=== PATIENT | male | born 1940 | race Caucasian/White ===

== ENCOUNTER 2019-08-17 06:27 | Day surgery (SDC) | payer MEDICARE, OTHER ==
[~2019-08-17] VITALS: Ht 188 cm; Wt 95.5 kg
[~2019-08-17 06:27] MED LIST: ASPIRIN 81M81 MG/TA2 PO; CEPHALEXIN500 M1 PO; CRESTOR40 MG PO; FISH OIL 1000MG1 CAP PO; GLUCOPHAGE500 MG/TAB PO; JANUVIA 100MG100 MG PO; LEVEMIR100 U/ML SQ; LIPITOR 80MG80 MG PO; NEURONTIN300 MG/CAP PO; PLAVIX 75MG TAB75 MG PO; PRILOSEC 20MG20 MG PO; SYNTHROID 0.0.025 MG PO; ZOCOR 40MG40 MG PO; ZOLOFT 25MG25 MG PO; ZOLOFT 50MG50 MG PO
[2019-08-17 07:16] VITALS: BP 128/69; PULSE 95; TEMP 97.4
[2019-08-17] MEDS ORDERED: GLUCOPHAGE XR500 M1 PO (07:27)
[2019-08-17] MEDS ORDERED: B-121000 MCG PO (07:29)
[2019-08-17] MEDS ORDERED: COMPAZINE 110 MG/TAB PO (07:31)
[2019-08-17] MEDS ORDERED: SYNTHROID0.05 MG/TA PO (07:31)
[2019-08-17] MEDS ORDERED: ZYRTEC 10MG10 MG PO (07:31)
[2019-08-17] MEDS ORDERED: FOLIC ACID 11 MG/TA1 PO (07:33)
--- NOTE | 2019-08-17 07:36 | NUR ---
TO RM AT 0641- CALL LIGHT IN REACH
[2019-08-17 09:10] VITALS: BP 127/68; PULSE 69; TEMP 97.5
--- NOTE | 2019-08-17 09:10 | NUR ---
TO RM 6 PER CART FROM OR. ALERT ORIENTED X3, TALKING WITH STAFF. DENIE PAIN OR DISCOMFORT.
[2019-08-17 09:15] VITALS: BP 132/67; PULSE 63
--- NOTE | 2019-08-17 09:15 | NUR ---
LOPEZ SET DRESSING OVER INCISION SITES CLEAN DRY INTACT. RECEIVED OJ AND MUFFIN. CALLED FOR RIDE HOME
[2019-08-17 09:17] LABS: HEMATOCRIT 34.2 % (42.0-52.0); MEAN CELL VOLUME 89 fl (80.0-100.0); MEAN CORPUSCULAR HEMOGLOBIN 29 pg (27.0-31.0); MEAN CORPUSCULAR HGB CONC 32 g/dl (33.0-37.0); MEAN PLATELET VOLUME 10.1 fl (7.4-10.4); PLATELET COUNT 213 K/mm3 (130-400); RED BLOOD COUNT 3.86 M/mm3 (4.20-5.60); REDCELL DISTRIBUTION WIDTH-CV 13.9 % (11.5-14.5)
[2019-08-17 09:20] LABS: ALBUMIN 3.2 gm/dL (3.5-5.0); CALCIUM 8.4 mg/dL (8.4-10.2); CREATININE, serum 1.06 (0.66-1.25); POTASSIUM 3.8 mmol/L (3.4-5.0); TOTAL PROTEIN 6.3 gm/dL (6.4-8.2)
[2019-08-17 09:30] VITALS: BP 132/65; PULSE 70
--- NOTE | 2019-08-17 09:30 | NUR ---
ATE 100% AND TOLERATED WELL.
--- NOTE | 2019-08-17 10:00 | NUR ---
RECEIVED DISCHARGE INSTRUCTIONS AND VERBALIZED UNDERSTANDING. DISCONTINUED IV AND INT- CATHETER INTACT. PATIENT GETTING DRESSED.
--- NOTE | 2019-08-17 10:15 | NUR ---
DISCHARGED PER WC BY NURSING STAFF TO PRIVATE CAR IN CARE OF ROSAS
[2019-08-17 10:19] LABS: BAND 4 % (0-10); EOSINOPHIL 1 % (0-4); LYMPHOCYTE 20 % (20.0-51.0); NEUTROPHILS 69 % (42.0-75.2)
[2019-08-17 10:20] LABS: PLATELET ESTIMATE NORMAL (NORMAL)
[2019-08-17 10:21] LABS: HYPOCHROMIA 1+; OVALOCYTES 1+
--- NOTE | 2019-08-17 10:58 | NUR ---
LABS FAXED TO DR LAUGHLIN'S OFFICE.
== END 2019-08-17 10:27 | disposition home or self-care (01) ==
LOC: SDCO 06:27
PROVIDERS: Surgery
DX: C34.31 Malignant neoplasm of lower lobe, right bronchus or lung (principal); C77.1 Secondary and unspecified malignant neoplasm of intrathoracic lymph nodes; C78.2 Secondary malignant neoplasm of pleura; E11.9 Type 2 diabetes mellitus without complications; Z79.4 Long term (current) use of insulin; Z79.82 Long term (current) use of aspirin; Z79.899 Other long term (current) drug therapy; Z95.0 Presence of cardiac pacemaker; Z88.9 Allergy status to unspecified drugs, medicaments and biological substances
CPT/HCPCS: C1788; J0690; J1644; J2704; J3010; J7030

== ENCOUNTER 2020-03-28 11:16 | Inpatient (IN) | payer MEDICARE, OTHER ==
[~2020-03-28] VITALS: Ht 188 cm; Wt 90.2 kg
[~2020-03-28 11:16] MED LIST changes: +B-121000 MCG PO; +COMPAZINE 110 MG/TAB PO; +FOLIC ACID 11 MG/TA1 PO; +GLUCOPHAGE XR500 M1 PO; +LANTUS100 U/ML SQ; -LEVEMIR100 U/ML SQ; +SYNTHROID0.075 MG/T PO; -ZOLOFT 50MG50 MG PO; +ZYRTEC 10MG10 MG PO
[2020-03-28 12:30] LABS: ALBUMIN 2.8 gm/dL (3.5-5.0); BILIRUBIN,TOTAL 1.4 mg/dL (0.0-1.0); CALCIUM 8.3 mg/dL (8.4-10.2); CREATININE, serum 1.1 (0.66-1.25); MEAN CELL VOLUME 95 fl (80.0-100.0); MEAN CORPUSCULAR HGB CONC 31 g/dl (33.0-37.0); MEAN PLATELET VOLUME 10.1 fl (7.4-10.4); PLATELET COUNT 62 K/mm3 (130-400); POTASSIUM 4.8 mmol/L (3.4-5.0); RED BLOOD COUNT 2.81 M/mm3 (4.20-5.60); REDCELL DISTRIBUTION WIDTH-CV 16.5 % (11.5-14.5)
[2020-03-28 12:35] LABS: HEMATOCRIT 26.7 % (42.0-52.0); HEMOGLOBIN 8.2 g/dl (13.5-18.0); MEAN CORPUSCULAR HEMOGLOBIN 29 pg (27.0-31.0)
[2020-03-28 12:49] LABS: C-REACTIVE PROTEIN 26.7 mg/dL (0.0-0.9)
[2020-03-28 13:27] LABS: BAND 7 % (0-10); LYMPHOCYTE 26 % (20.0-51.0); NEUTROPHILS 67 % (42.0-75.2); PLATELET ESTIMATE DECREASED (NORMAL); SCHISTOCYTES 1+; TEAR DROP CELLS 1+
[2020-03-28 13:30] LABS: INR 1.1 (0.8-3.0); PROTHROMBIN TIME 12.5 SECONDS (9.7-12.8)
--- NOTE | 2020-03-28 15:27 | NUR ---
Pt has right sided pleurx drain with drainage seeping from around the insertion site. Cap was removed and dried drainage noted on the one way valve access site. Using sterile gloves the top was cleansed with alcohol and the drainage bottle was attached and suction activated. Prompt return of about 200ml of escalante colored fluid with some air noted also. Pt tolerated this well. Drainage bottle was disconnected, one way valve access was again cleansed with alcohol and a clean cap was applied. Foam dressing was applied to skin and then guaze was used to cover the drainage tube. Pt states he has not been using tegaderm as it is too hard on his skin and instead has been using tape and then karolina wrap to hold in place. This is not the recommended dressing but has been his practice. Specimen and report given to his nurse Alicia.
[2020-03-28 16:01] LABS: PLEURAL FLUID APPEARANCE TURBID; PLEURAL FLUID COLOR OTHER
[2020-03-28 16:02] LABS: PLEURAL FLUID RBC 0 /mm3 (0-0); PLEURAL FLUID WBC 276 /mm3
[2020-03-28] MEDS ORDERED: ZITHROMAX 250M250 MG PO (16:24)
[2020-03-28] MEDS ORDERED: PREDNISONE20 MG PO (16:24)
[2020-03-28] MEDS ORDERED: PROMETHAZINE12.5 M5 PO (16:24)
[2020-03-28 18:08] VITALS: BP 126/55; PULSE 73; TEMP 98.1
[2020-03-28 19:05] VITALS: BP 135/94; PULSE 94; TEMP 98
[2020-03-28] MEDS ORDERED: HUMALOG100 U/ML SQ (19:22)
[2020-03-28 22:56] VITALS: BP 120/48; PULSE 87; TEMP 98.7
[2020-03-29] VITALS (10 sets, daily range): BP systolic 118–150; BP diastolic 52–86; PULSE 69–96; TEMP 97.9–99.3
--- NOTE | 2020-03-29 01:24 | NUR ---
Patient admitted to medical floor Room 310 from ER on 03/28/20. Patient pleasant, A/O x4. Patient denies any pain or discomfort. Denies SOB or dyspnea. Patient reports mild nausea but refused for any nausea medicine at this time. Pleurx drain site to right lateral lower chest covered with dry dressing. Dressing clean/dry/intact. Redness to right lateral lower chest area noted. Right upper chest port cath and Left AC IV site has no s/s of complications. Scheduled meds given per order. Call light within reach. Patient denies any needs at this time.
[2020-03-29 06:07] LABS: MEAN CELL VOLUME 96 fl (80.0-100.0); MEAN CORPUSCULAR HGB CONC 32 g/dl (33.0-37.0); MEAN PLATELET VOLUME 10.5 fl (7.4-10.4); RED BLOOD COUNT 2.29 M/mm3 (4.20-5.60); REDCELL DISTRIBUTION WIDTH-CV 16.3 % (11.5-14.5)
[2020-03-29 06:10] LABS: CALCIUM 7.7 mg/dL (8.4-10.2); CREATININE, serum 0.92 (0.66-1.25); HEMATOCRIT 21.9 % (42.0-52.0); HEMOGLOBIN 6.9 g/dl (13.5-18.0); MEAN CORPUSCULAR HEMOGLOBIN 30 pg (27.0-31.0)
[2020-03-29 06:17] LABS: PLATELET COUNT 32 K/mm3 (130-400)
--- NOTE | 2020-03-29 06:18 | NUR ---
Patient slept well throughout the shift. Woke up a few times to use bathroom. Ambulates with steady gait. 1 person stand-by assit needed. Denies any pain or discomfort. No acute distress noted. Call light within reach.
--- NOTE | 2020-03-29 06:38 | NUR ---
Called Dr. Macias at 06:35 am to leave voice message regarding critical lab value of WBC 1.4 and platelet count of 32.
--- NOTE | 2020-03-29 07:32 | NUR ---
Bedside shift report received. pt AOX4. stated he recently ambulated self to bathroom. denies ambulation issues. would like some phenegran tablets for nausea. denies pain. IVF infusing as ordered. dressing to rt flank pleurx drain site C/D/I with KATT around abd. redness noted to back area. no s/s bleeding noted or reported. call light within reach.
[2020-03-29 08:38] LABS: ANISOCYTOSIS 2+; BAND 4 % (0-10); LYMPHOCYTE 24 % (20.0-51.0); NEUTROPHILS 64 % (42.0-75.2); PLATELET ESTIMATE DECREASED (NORMAL)
[2020-03-29 08:39] LABS: BURR CELLS 2+; OVALOCYTES 1+
--- NOTE | 2020-03-29 10:09 | NUR ---
Morning meds given. PT AOX4. dressing to rt flank JAKE insertion site changed and wound culture collected. yellow drainage noted with immediate surrounding area red, irritated and outter area warm towards abd fold. type and cross collected via Port to rt chest. rt lung hernandez very diminished. pt denies any SOB at rest. mild with activity. abd distended round. steady independent ambulation. made aware of UA needed and urinal provided. call light within reach
--- NOTE | 2020-03-29 11:32 | NUR ---
pt and educated about Granix and pt given box and pamphlet. awaiting blood to be ready.
[2020-03-29 12:42] LABS: PH 6 (5-8); SQUAMOUS EPITHELIAL None Seen /hpf; URINE APPEARANCE Clear; URINE BACTERIA Rare /hpf; URINE BILIRUBIN Negative (NEGATIVE); URINE BLOOD 2+ (NEGATIVE); URINE COLOR Yellow; URINE GLUCOSE 1+ (NEGATIVE); URINE KETONE Negative (NEGATIVE); URINE LEUKOCYTE ESTERASE Negative (NEGATIVE); URINE NITRATE Negative (NEGATIVE); URINE PROTEIN(semi-quant) 1+ (NEGATIVE); URINE RBC 20-50 /hpf; URINE UROBILINOGEN >=4.0 mg/dL (NEGATIVE)
[2020-03-29 13:11] LABS: COLLECTION METHOD CLEAN CATCH
--- NOTE | 2020-03-29 13:17 | NUR ---
SW met with patient at his bedside to complete intake assessment. Patient indicated that he currently resides in [place] with his [facility] [phone] as his EMR and care support. Patient reports that he was "fairly Independent with ADL's and that he does have a DPOa. Patient indicated having a walker and a cane, and that his PCP is Dr. Glez, he does not have any upcoming appointments. Patient reports that he gets his medications from [facility] with no concerns. Patient reports that he receives HH services from [facility], and wishes to continue receiving care if needed. SW will coordinate with [facility] as needed for continued care.
--- NOTE | 2020-03-29 19:06 | NUR ---
PT with mild to severe nausea this shift and refused lunch despite prophylactic admin of zofran and promethazine prior to. was able to drink glucerna and fruit cups x2 for dinner. no emesis. pt wants to stick to taking phenegran as "he has tried them all and the others dont work". ice chips also provided. denies pain. no reactions to blood transfusion noted. lung sounds unchanged. report given to oncoming nurses.
--- NOTE | 2020-03-29 22:16 | NUR ---
Patient laying in bed upon enter the room. Patient A/O x4. Patient appears more tired today. Noticed dinner tray is still on the table and patient only ate 10% of meal. Patient states no appetite at all. Patient c/o mild nausea and states nausea is a little better than earlier. Denies need for nausea medicine at this time. Patient denies chest pain or SOB. Breathing even and unlabored. Right upper chest port cath site and Left AC IV site has no s/s of complications. Right lateral chest wall pleurx drain site covered with dry dressing. Dressing clean/dry/intact. Right lateral chest area skin is still reddened. Scheduled meds given per order. Patient took medicine without difficulty. Call ligth within reach. Patient denies any needs at this time.
[2020-03-29 22:48] LABS: HEMATOCRIT 25.6 % (42.0-52.0); HEMOGLOBIN 8.2 g/dl (13.5-18.0)
[2020-03-30 00:15] VITALS: BP 124/55; PULSE 78; TEMP 98.1
[2020-03-30 04:38] VITALS: BP 120/56; PULSE 77; TEMP 97.9
--- NOTE | 2020-03-30 06:07 | NUR ---
Patient slept well throughout the shift. No c/o pain or discomfort. Patient states nausea is a little better. Denies need for nausea medicine at this time. Morning meds given per order. Patient sitting up in bed and watching TV. Call light within reach. Denies any needs at this time.
[2020-03-30 06:13] LABS: MEAN CELL VOLUME 97 fl (80.0-100.0); MEAN CORPUSCULAR HGB CONC 32 g/dl (33.0-37.0); MEAN PLATELET VOLUME 12.5 fl (7.4-10.4); RED BLOOD COUNT 2.46 M/mm3 (4.20-5.60); REDCELL DISTRIBUTION WIDTH-CV 15.8 % (11.5-14.5)
[2020-03-30 06:25] LABS: CALCIUM 7.9 mg/dL (8.4-10.2); POTASSIUM 3.9 mmol/L (3.4-5.0)
[2020-03-30 06:28] LABS: HEMATOCRIT 23.8 % (42.0-52.0); HEMOGLOBIN 7.5 g/dl (13.5-18.0); MEAN CORPUSCULAR HEMOGLOBIN 30 pg (27.0-31.0)
[2020-03-30 06:29] LABS: PLATELET COUNT 19 K/mm3 (130-400)
--- NOTE | 2020-03-30 07:02 | NUR ---
Bedside shift report received. pt resting in bed with eyes closed. appears asleep. frequent swallowing noted. nausea suspected. phenegran requested from pharmacy. call light within reach
[2020-03-30 07:33] VITALS: BP 117/52; PULSE 76; TEMP 98.2
[2020-03-30 07:58] LABS: BAND 6 % (0-10); EOSINOPHIL 2 % (0-4); LYMPHOCYTE 52 % (20.0-51.0); NEUTROPHILS 38 % (42.0-75.2)
[2020-03-30 08:01] LABS: ANISOCYTOSIS 1+; HYPOCHROMIA 1+; PLATELET ESTIMATE DECREASED (NORMAL)
--- NOTE | 2020-03-30 08:07 | NUR ---
MORNING MEDS given. pt reports mild nausea but was bale to eat some breakfast.
--- NOTE | 2020-03-30 10:58 | NUR ---
DRESSING over rt flank pleurx drain changed. old dressing moderately saturated with yellow drainage. insertion site still red with surrounding abd fold and back side warm, blanchable.
[2020-03-30 11:51] VITALS: BP 116/52; PULSE 72; TEMP 97.9
--- NOTE | 2020-03-30 12:40 | NUR ---
BLOOD BANK called in regards to pending platelets ordered in AM. will look into it and call me back.
[2020-03-30 15:55] VITALS: BP 135/56; PULSE 78; TEMP 99.2
--- NOTE | 2020-03-30 16:48 | NUR ---
platelets not available until tomorrow's delivery per blood bank. Dr Bradford at bedside and made aware. Plan to transfer pt to once bed becomes available. tentative time 2229. pt and made aware. nausea controlled. denies pain.
[2020-03-30 17:09] LABS: MEAN CELL VOLUME 97 fl (80.0-100.0); MEAN CORPUSCULAR HGB CONC 31 g/dl (33.0-37.0); MEAN PLATELET VOLUME 10.5 fl (7.4-10.4); RED BLOOD COUNT 2.55 M/mm3 (4.20-5.60); REDCELL DISTRIBUTION WIDTH-CV 15.8 % (11.5-14.5)
[2020-03-30 17:19] LABS: HEMATOCRIT 24.6 % (42.0-52.0); HEMOGLOBIN 7.6 g/dl (13.5-18.0); MEAN CORPUSCULAR HEMOGLOBIN 30 pg (27.0-31.0); PLATELET COUNT 12 K/mm3 (130-400)
[2020-03-30 18:13] LABS: BAND 5 % (0-10); EOSINOPHIL 2 % (0-4); LYMPHOCYTE 48 % (20.0-51.0); NEUTROPHILS 42 % (42.0-75.2)
[2020-03-30 18:15] LABS: ANISOCYTOSIS 1+; HYPOCHROMIA 3+; PLATELET ESTIMATE DECREASED (NORMAL)
[2020-03-30 18:59] VITALS: BP 145/62; PULSE 99; TEMP 98.3
--- NOTE | 2020-03-30 20:50 | NUR ---
Patient assessed at this time. Alert and oriented x 4, and able to make needs known. Denies having pain and discomfort at this time. Peripheral INT to left AC. Port to right chest. Reports SOB with exertion, no more that "usual." LS CTA in upper lobes, diminished in lower. No cough. Respirations even and unlabored. Clamped pleurex drain to right chest. Dressing CDI. Redness surrounging area. Continues on IV ABXs per orders. HRR. Capillary refill less than 3 seconds. Non-tenting skin turgor. BSAx4. Abdomen soft and non-tender. Denies nausea at this time. Generalized edema. Voices no questions, needs, or concerns at this time. Resting in bed with call light within reach.
--- NOTE | 2020-03-30 21:45 | NUR ---
EMS stated they would be in to transport patient around 2114. Called [facility] and gave report to Gayatri at 2099. EMS arrived at 2129, and left with patient at 2134. Called and updated Gayatri, nurse at , at 2144 on when patient left.
== END 2020-03-30 21:35 | disposition short-term general hospital (02) | DRG 919 ==
LOC: COL.ER 11:16 → MEDICAL 13:43
PROVIDERS: Nurse Practitioner; Physician Assistant; ADMIT Hospitalist
DX: T81.82XA Emphysema (subcutaneous) resulting from a procedure, initial encounter (principal); A41.9 Sepsis, unspecified organism; L03.313 Cellulitis of chest wall; C34.90 Malignant neoplasm of unspecified part of unspecified bronchus or lung; D61.818 Other pancytopenia; E87.1 Hypo-osmolality and hyponatremia; J94.2 Hemothorax; T85.79XA Infection and inflammatory reaction due to other internal prosthetic devices, implants and grafts, initial encounter; T81.49XA Infection following a procedure, other surgical site, initial encounter; R31.9 Hematuria, unspecified; E78.5 Hyperlipidemia, unspecified; Z20.828 Contact with and (suspected) exposure to other viral communicable diseases; F32.9 Major depressive disorder, single episode, unspecified; E03.9 Hypothyroidism, unspecified; E11.9 Type 2 diabetes mellitus without complications; Z79.4 Long term (current) use of insulin; Z87.891 Personal history of nicotine dependence; Y84.8 Other medical procedures as the cause of abnormal reaction of the patient, or of later complication, without mention of misadventure at the time of the procedure
CPT/HCPCS: 99223-AI; 99232-AI; 99239; J1447; J1815; J2405; J2543; J2550; J3370; J7030; J7050; P9040; Q9967

== ENCOUNTER 2020-12-17 10:32 | Emergency (ER) | payer MEDICARE, OTHER ==
[~2020-12-17] VITALS: Ht 188 cm; Wt 68.0 kg
[~2020-12-17 10:32] MED LIST changes: +HUMALOG100 U/ML SQ; +PREDNISONE20 MG PO; +PROMETHAZINE12.5 M5 PO; +ZITHROMAX 250M250 MG PO
[2020-12-17] MEDS ORDERED: OMNICEF 300MG300 MG PO (12:37)
[2020-12-17 13:54] VITALS: BP 115/56; PULSE 85; TEMP 96.3
[2020-12-22] MEDS ORDERED: GLUCOPHAGE500 MG/TAB PO (08:25)
[2020-12-22] MEDS ORDERED: EPA FISH OIL1 SGL PO (08:27)
[2020-12-22] MEDS ORDERED: ASPIRIN 81M81 MG/TA2 PO (08:27)
[2020-12-22] MEDS ORDERED: LANTUS100 U/ML SQ (08:28)
[2020-12-22] MEDS ORDERED: RT ALBUTER2.5 MG/0.5 IH (08:29)
[2020-12-22] MEDS ORDERED: PULMICORT0.5 MG/2 M IH (08:31)
[2020-12-22] MEDS ORDERED: ATROVENT I0.2 MG/1 M IH (08:31)
[2020-12-22] MEDS ORDERED: BROVANA15 MCG/2 M IH (08:35)
== END 2020-12-17 13:55 | disposition home or self-care (01) ==
LOC: COL.ER 10:32
DX: T85.79XA Infection and inflammatory reaction due to other internal prosthetic devices, implants and grafts, initial encounter (principal); J90 Pleural effusion, not elsewhere classified; J18.9 Pneumonia, unspecified organism; E11.9 Type 2 diabetes mellitus without complications; E78.5 Hyperlipidemia, unspecified; F32.9 Major depressive disorder, single episode, unspecified; E03.9 Hypothyroidism, unspecified; C34.90 Malignant neoplasm of unspecified part of unspecified bronchus or lung; Z95.0 Presence of cardiac pacemaker; Z88.0 Allergy status to penicillin; Z79.890 Hormone replacement therapy; Z79.899 Other long term (current) drug therapy